=== PATIENT | female | born 1965 ===

== ENCOUNTER 2025-04-28 08:00 | Day surgery (SDC) | payer OTHER ==
[2025-04-23 11:02] LABS: URINE APPEARANCE Clear; URINE BILIRRUBIN Negative (NEGATIVE); URINE BLOOD Trace; URINE COLOR Yellow; URINE GLUCOSE Negative (NEGATIVE); URINE KETONE Negative (NEGATIVE); URINE LEUKOCYTE Moderate; URINE NITRATE Negative; URINE PROTEIN Negative (NEGATIVE); URINE UROBILINOGEN 0.2 E.U./dl
[2025-04-23 11:08] LABS: URINE BACTERIA 33.5 uL (0.0-1933); URINE EPITHELIAL CELLS 9.3 uL (0.0-38.8); URINE RBC 10.4 uL (0.0-20.8); URINE WBC 13.5 uL (0.0-23.2)
[2025-04-23 11:10] LABS: BASO % 0.8 % (0.1-1.2); EOS # 0.08 (0.04-0.54); EOS % 1.3 % (0.7-7.0); LYMPH # 2.02 (1.18-3.74); LYMPH % 33.1 % (19.3-53.1); MEAN PLATELET VOLUME 9.40 fl (9.4-12.4); MONO # 0.56 (0.24-0.82); MONO % 9.2 % (4.7-12.5); NEUT # 3.37 (1.56-6.13); NEUT % 55.3 % (34.0-71.1); RED CELL DISTRIBUTION WIDTH 13.2 % (11.6-14.4)
[2025-04-23 11:21] LABS: URINE CAST 0.00 uL (0.0-1.40)
[2025-04-23 11:50] LABS: INR 0.98
[2025-04-23 12:04] LABS: ALT/SGPT 21.0 U/L (12-78); AST/SGOT 18.0 U/L (15-37); BILIRUBIN TOTAL 0.59 mg/dL (0.3-1.2); BUN CREA RATIO 29.0 (7.0-25.0); CREATININE SERUM 0.56 mg/dL (0.55-1.02); GFR 111.19; GLOBULINA 3.4 G/DL (2.4-3.5); GLUCOSE FASTING 86.0 mg/dL (65-100); OSMOLALITY SERUM 285.0 MOSM/KG (275-295)
[2025-04-23 14:51] VITALS: BP 111/77
[~2025-04-28] VITALS: Ht 157.5 cm; Wt 52.2 kg
[2025-04-28] MEDS ORDERED: CEFAZOLIN SODIUM 1,000 MG VIAL ONE (08:40)
[2025-04-28] MEDS ORDERED: BUPIVACAINE HCL/MPF 0.5% 30ML VIAL ONE (10:15)
== END 2025-04-28 15:05 | disposition home or self-care (01) ==
LOC: CIR.AMB 08:00
PROVIDERS: ATTEND Orthopaedic Surgery Hand Surgery
DX: R22.31 Localized swelling, mass and lump, right upper limb (principal); M67.431 Ganglion, right wrist